=== PATIENT | female | born 1955 | race Caucasian/White ===

== ENCOUNTER 2018-01-25 00:31 | Emergency (ER) | payer OTHER ==
[2018-01-25 00:42] VITALS: BP 150/73; BMI 25.7
--- NOTE | 2018-01-25 00:49 | PDOC ---
History of Present Illness - General History Source: Patient Exam Limitations: No Limitations - History of Present Illness Initial Comments: 01/25/18 01:13 The patient is a year old female, with a significant past medical history of tension headaches, cervical spondylosis, GERD, and carpal tunnel syndrome , who presents to the emergency department with, two days of fever, chills, headache, earache, and throat pain. The patient describes her ear pain as a pinching. She reports her throat pain to worsen upon swallowing and a Tmax of 100 degree Fahrenheit. As per patient, she took 500mg of Tylenol at 6:00pm. Secondary to her symptoms, she reports nausea without emesis and right leg pain. The patient is positive for sick contacts. She denies recent vomit, diarrhea or constipation. She denies recent dysuria, frequency, urgency or hematuria. She denies recent chest pain or shortness of breath. Past surgical history: None reported. Social history: Nonsmoker. Denies EtOH use and recreational drug use. <Jennifer Morrow - Last Filed: 01/25/18 01:58> <Mynor Antony - Last Filed: 01/25/18 02:00> - General Chief Complaint: Ear Problem Stated Complaint: FEVER/EAR PAIN/HEAD ACHE Time Seen by Provider: 01/25/18 00:48 Past History <Jennifer Morrow - Last Filed: 01/25/18 01:58> - Past Medical History GI Disorders: Yes (Gastritis) Hypercholesterolemia: Yes - Surgical History Abdominal Surgery: Yes - Suicide/Smoking/Psychosocial Hx Smoking History: Unknown if ever smoked Have you smoked in the past 12 months: No Information on smoking cessation initiated: No Hx Alcohol Use: No Drug/Substance Use Hx: No <Mynor Antony - Last Filed: 01/25/18 02:00> - Past Medical History Allergies/Adverse Reactions: Allergies Allergy/AdvReac Type Severity Reaction Status Date / Time anesthesia Allergy Severe cardiac Uncoded 01/25/18 00:40 problems Home Medications: Ambulatory Orders Acetaminophen [Tylenol] 650 mg PO 01/25/18 Review of Systems - Review of Systems Able to Perform ROS?: Yes Comments:: 01/25/18 01:13 CONSTITUTIONAL: +Fever. No chills, no fatigue EYES: No visual changes ENT: +ear pain. +sore throat CARDIOVASCULAR: No chest pain, no palpitations RESPIRATORY: No cough, no SOB GI: +Nausea. No abdominal pain, no vomiting, no constipation, no diarrhea GENITOURINARY: No dysuria, no frequency, no hematuria MUSKULOSKELETAL: +Right leg pain. No backpain, no joint pain SKIN: No rash NEURO: +Headache All Other Systems: Reviewed and Negative <Jennifer Morrow - Last Filed: 01/25/18 01:58> *Physical Exam - Vital Signs Last Vital Signs Temp Pulse Resp BP Pulse Ox 100.8 F H 111 H 14 150/73 97 01/25/18 00:58 01/25/18 00:40 01/25/18 00:40 01/25/18 00:40 01/25/18 00:40 - Physical Exam Comments: 01/25/18 01:51 CONSTITUTIONAL:+Febrile. Ill appearing; well-nourished; in no apparent distress HEAD: Normocephalic; atraumatic EYES: PERRL; EOM intact No photophobia. ENMT: +Dry mucous membranes; erythematous oropharynx with exudates. NECK: +Bilateral, anterior cervical lymphadenopathy with tenderness. Supple; non -tender. No Kearning's or Brudzinski. CARD: Normal S1, S2; no murmurs, rubs, or gallops RESP: Normal chest excursion with respiration; breath sounds clear and equal bilaterally; no wheezes, rhonchi, or rales ABD: Soft, non-distended; non-tender; no palpable organomegaly, no palpable hernias EXT: Normal ROM in all four extremities; non-tender to palpation; distal pulses intact SKIN: Warm, dry, no rash NEURO: No focal neurological deficiencies. <Jennifer Morrow - Last Filed: 01/25/18 01:58> - Vital Signs Last Vital Signs Temp Pulse Resp BP Pulse Ox 111 H 14 150/73 97 01/25/18 00:40 01/25/18 00:40 01/25/18 00:40 01/25/18 00:40 <Mynor Antony - Last Filed: 01/25/18 02:00> ED Treatment Course - LABORATORY CBC & Chemistry Diagram: 01/25/18 01:33 01/25/18 01:33 <Jennifer Morrow - Last Filed: 01/25/18 01:58> - LABORATORY CBC & Chemistry Diagram: 01/25/18 01:33 01/25/18 01:33 <Mynor Antony - Last Filed: 01/25/18 02:00> Medical Decision Making - Medical Decision Making 01/25/18 01:45 Vent rate: 100 bpm CO interval: 142 ms QRS duration: 98 ms QT/QTc: 342/441 ms P-R-T axes: 42 76 39 Normal sinus rhythm, Normal ECG. <Jennifer Morrow - Last Filed: 01/25/18 01:58> - Medical Decision Making 01/25/18 01:59 Patient is an ill-appearing 62-year-old female who presents with signs and symptoms of acute strep pharyngitis. No meningeal signs are present. Will hydrate, we'll administer amoxicillin. Will reassess. <Mynor Antony - Last Filed: 01/25/18 02:00> *DC/Admit/Observation/Transfer - Attestations Scribe Attestion: 01/25/18 01:14 Documentation prepared by Jennifer Morrow, acting as biomedical equipment technician for Mynor Antony MD. <Jennifer Morrow - Last Filed: 01/25/18 01:58> - Attestations Physician Attestion: 01/25/18 02:00 The documentation was prepared by the scribe under my direct supervision. I have reviewed the documentation which correctly represents the findings, medical decision-making and critical action taken by me. <Mynor Antony - Last Filed: 01/25/18 02:00> - Referrals Referrals: Ankita Sandhu [Primary Care Provider] -
[2018-01-25] MEDS ORDERED: SODIUM CHLORIDE 1,000 ML IV STA (01:02)
[2018-01-25] MEDS ORDERED: ACETAMINOPHEN 1000 MG/100 ML VIAL (NON FORMULARY) IVPB ONE (01:02)
[2018-01-25] MEDS ORDERED: ACETAMINOPHEN INJECTION 100 ML IVPB ONE (01:05)
[2018-01-25] MEDS ORDERED: AMOXICILLIN 500 MG CAPSULE (FP) PO ONE (01:45)
[2018-01-25 01:50] LABS: BASO % 0.4 % (0-2.0); EOS % 0.1 % (0-4.5); HEMATOCRIT 37.3 % (32.4-45.2); HEMOGLOBIN 12.7 GM/dL (10.7-15.3); LYMPH % 7.3 % (8-40); MCH 28.8 pg (25.7-33.7); MCHC 34.2 g/dl (32.0-36.0); MEAN CELL VOLUME 84.3 fl (80-96); MEAN PLT VOLUME 8.2 fl (7.5-11.1); MONO % 7.7 % (3.8-10.2); NEUT % 84.5 % (42.8-82.8); PLATELET COUNT 260 K/MM3 (134-434); RBC 4.42 M/mm3 (3.60-5.2); RDW 13.6 % (11.6-15.6); WHITE BLOOD COUNT 17.3 K/mm3 (4.0-10.0)
[2018-01-25 01:51] LABS: URINE APPEARANCE CLEAR; URINE BILIRUBIN NEGATIVE (<2.0 mg/dL); URINE BLOOD NEGATIVE (NEGATIVE); URINE COLOR YELLOW; URINE GLUCOSE (UA) NEGATIVE (NEGATIVE); URINE KETONE TRACE (NEGATIVE); URINE LEUK ESTERASE NEGATIVE (NEGATIVE); URINE NITRITE NEGATIVE (NEGATIVE); URINE PROTEIN NEGATIVE (NEGATIVE)
[2018-01-25] MEDS ORDERED: AMOXICILLIN 500 MG CAPSULE (FP) ONE (03:43)
[2018-01-25 03:47] VITALS: PULSE 96; TEMP 98.4
[2018-01-25 03:57] LABS: GLUCOSE,RANDOM 140 mg/dL (74-106)
[2018-01-25 03:58] LABS: BLOOD UREA NITROGEN 10 mg/dL (7-18)
[2018-01-25 03:59] LABS: CREATININE 0.6 mg/dL (0.55-1.02)
[2018-01-25 04:01] LABS: CALCIUM 8.6 mg/dL (8.5-10.1); CHLORIDE 100 mmol/L (98-107); CO2 26 mmol/L (21-32); POTASSIUM 3.8 mmol/L (3.5-5.1); TOT PROT 7.2 g/dl (6.4-8.2)
[2018-01-25 04:02] LABS: ALBUMIN 3.5 g/dl (3.4-5.0); ALK PHOS 127 U/L (45-117); BILIRUBIN,TOTAL 0.4 mg/dL (0.2-1.0); SGOT/AST 18 U/L (15-37); SGPT/ALT 16 U/L (12-78)
[2018-01-25 04:03] LABS: ANION GAP 9 (8-16); SODIUM 135 mmol/L (136-145)
--- NOTE | 2018-01-25 04:50 | PDOC ---
*Physical Exam - Vital Signs Last Vital Signs Temp Pulse Resp BP Pulse Ox 98.4 F 96 H 16 150/73 98 01/25/18 03:46 01/25/18 03:46 01/25/18 03:46 01/25/18 00:40 01/25/18 03:46 - Physical Exam Comments: 01/25/18 04:46 "GENERAL: Awake, alert, and fully oriented, in no acute distress HEAD: No signs of trauma EYES: PERRLA, EOMI, sclera anicteric, conjunctiva clear ENT: Auricles normal inspection, hearing grossly normal, nares patent, oropharynx clear without exudates. Moist mucosa NECK: Nontender, no stepoffs, Normal ROM, supple, no lymphadenopathy, JVD, or masses LUNGS: Breath sounds equal, clear to auscultation bilaterally. No wheezes, and no crackles HEART: Regular rate and rhythm, normal S1 and S2, no murmurs, rubs or gallops ABDOMEN: Soft, nontender, normoactive bowel sounds. No guarding, no rebound. No masses EXTREMITIES: Normal range of motion, no edema. No clubbing or cyanosis. No cords, erythema, or tenderness NEUROLOGICAL: Cranial nerves II through XII intact. 5/5 strength and sensation in all extremities, Normal speech, normal gait, normal cerebellar function SKIN: Warm, Dry, normal turgor, no rashes or lesions noted. " ED Treatment Course - LABORATORY CBC & Chemistry Diagram: 01/25/18 01:33 01/25/18 01:33 - ADDITIONAL ORDERS Additional order review: Laboratory Results 01/25/18 01/25/18 01:33 01:33 Sodium 135 L Potassium 3.8 Chloride 100 Carbon Dioxide 26 Anion Gap 9 BUN 10 Creatinine 0.6 Creat Clearance w eGFR > 60 Random Glucose 140 H Calcium 8.6 Total Bilirubin 0.4 AST 18 ALT 16 Alkaline Phosphatase 127 H Total Protein 7.2 Albumin 3.5 Urine Color Yellow Urine Appearance Clear Urine pH 6.0 D Ur Specific [place] 1.019 Urine Protein Negative Urine Glucose (UA) Negative Urine Ketones Trace H Urine Blood Negative Urine Nitrite Negative Urine Bilirubin Negative Urine Urobilinogen 2.0 H Ur Leukocyte Esterase Negative 01/25/18 01:33 Influenza Types A,B Antigen (KRYSTYNA) - Final Nasopharyngeal Swab - Final 01/25/18 01:01 Group A Strep Rapid Antigen - Final Throat 01/25/18 01:33 RBC 4.42 MCV 84.3 MCHC 34.2 RDW 13.6 MPV 8.2 Neutrophils % 84.5 H Lymphocytes % 7.3 L D Monocytes % 7.7 Eosinophils % 0.1 D Basophils % 0.4 Medical Decision Making - Medical Decision Making 01/25/18 04:47 sign out taken from Dr. Antony at 2am 62 F with fevers, sore throat. Found to be strep positive in ED. Plan at sign out was to follow up labs and reassess pt, admit if necessary. Pt reassessed - now feels significantly better after fluids. Pt is well appearing, with normal vitals. Clinically stable for DC at this time. I discussed the physical exam findings, ancillary test results and final diagnoses with the patient. I answered all of the patient's questions. The patient was satisfied with the care received and felt comfortable with the discharge plan and treatment plan. The patient agrees to follow up with the primary care physician within 24-72 hours. *DC/Admit/Observation/Transfer Diagnosis at time of Disposition: Strep pharyngitis - Discharge Dispostion Disposition: HOME Condition at time of disposition: Improved - Referrals Referrals: Ankita Sandhu [Primary Care Provider] - - Patient Instructions Printed Discharge Instructions: DI for Strep Throat Additional Instructions: You have strep throat. 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 If you experience worsening throat pain, fevers, difficulty swallowing, or any other concerning symptoms, return to the ER immediately. Otherwise, follow up with your primary doctor within 1 week for a re-evaluation. - Post Discharge Activity - Attestations Physician Attestion: 01/25/18 04:53 I, Dr. Fitz Camacho MD, attest that this document has been prepared under my direction and personally reviewed by me in its entirety. I further attest, that it accurately reflects all work, treatment, procedures and medical decision -making performed by me.
--- NOTE | 2018-01-25 21:30 | EKG ---
Test Reason : Blood Pressure : / mmHG Vent. Rate : 100 BPM Atrial Rate : 100 BPM P-R Int : 142 ms QRS Dur : 098 ms QT Int : 342 ms P-R-T Axes : 042 076 039 degrees QTc Int : 441 ms NORMAL SINUS RHYTHM NORMAL ECG WHEN COMPARED WITH ECG OF 07-OCT-2016 13:42, NO SIGNIFICANT CHANGE WAS FOUND Confirmed by ERIK HALL MD ([id number]) on 01/25/2018 9:29:50 PM Referred By: Confirmed By:ERIK HALL MD
== END 2018-01-25 05:00 | disposition home or self-care (01) ==
LOC: JER 00:31
PROC: 3E033NZ Introduction of Analgesics, Hypnotics, Sedatives into Peripheral Vein, Percutaneous Approach (ICD-10-PCS; principal; 2018-01-25)
DX: J02.0 Streptococcal pharyngitis (principal); B95.0 Streptococcus, group A, as the cause of diseases classified elsewhere
CPT/HCPCS: 36415; 80053; 81003; 85025; 87040; 87070; 87077; 87086; 87430; 87804; 93005; 93010; 96374; 99283-25; J0131; J7030

== ENCOUNTER 2018-09-10 19:08 | Emergency (ER) | payer OTHER ==
[2018-09-10 20:04] VITALS: BP 145/77; PULSE 96; TEMP 99.2; BMI 24.1
[2018-09-10] MEDS ORDERED: MAG HYDROX/AL HYDROX/SIMETH 30 ML UNIT-DOSE CUP PO ONE (20:09)
[2018-09-10] MEDS ORDERED: IBUPROFEN 400 MG TABLET (FP) PO ONE ×2 (20:09→20:18)
[2018-09-10] MEDS ORDERED: diazePAM 5 MG TABLET PO ONE (20:09)
[2018-09-10] MEDS ORDERED: LIDOCAINE 5% TOPICAL PATCH TP ONE (20:09)
[2018-09-10] MEDS ORDERED: LIDOCAINE 5% TOPICAL PATCH ONE (20:18)
[2018-09-10] MEDS ORDERED: MAG HYDROX/AL HYDROX/SIMETH 30 ML UNIT-DOSE CUP ONE (20:18)
[2018-09-10] MEDS ORDERED: diazePAM 5 MG TABLET ONE (20:18)
--- NOTE | 2018-09-10 20:23 | PDOC ---
History of Present Illness - General Chief Complaint: Back Pain Stated Complaint: BACK PAIN Time Seen by Provider: 09/10/18 19:43 History Source: Patient Exam Limitations: No Limitations - History of Present Illness Initial Comments: 63 y/o F hx of GERD, HLD, L4-L5 disc herniation, abdominal tumor removal 2015, myomectomy presents with acute on chronic back pain radiating down R thigh. Pain worsened 3 days ago after lifting heavy groceries. Patient states she has had pain for several months and had MRI of L-spine done 03/19/18 which showed L4- L5 disc herniation with L4 nerve root contact. She was referred to neurosurgeon who recommended surgery in June, but states her daughter got into a serious car accident at the time and she had to take care of her so she cancelled the surgery. She states the pain is so bad now, she finds it difficult to even walk. Has tried taking Tylenol and using Bengay without relief of pain. She went to pain management clinic yesterday and was advised steroid injection but appointment was not until 10/14/18. Given she could no longer wait due to pain, she came to ED. Denies fever, sob, cp, abd pain, n/v, urinary complaints, saddle /groin paresthesia, incontinence, trauma. 09/10/18 20:22 Past History - Past Medical History Allergies/Adverse Reactions: Allergies Allergy/AdvReac Type Severity Reaction Status Date / Time lidocaine AdvReac Verified 09/10/18 20:05 Home Medications: Ambulatory Orders Acetaminophen [Tylenol] 650 mg PO ASDIR PRN 01/25/18 Dexlansoprazole [Dexilant] 60 mg PO DAILY 09/10/18 Diclofenac Sodium 50 mg PO TID PRN #30 tablet. 09/10/18 Famotidine [Pepcid] 20 mg PO DAILY PRN #30 tablet 09/10/18 Lidocaine 5% Patch [Lidoderm -] 1 patch TP DAILY #30 patch 09/10/18 Menthol [Bengay Ultra Strength] 1 patch TD Q12H 09/10/18 Methocarbamol [Robaxin -] 500 mg PO TID PRN #21 tablet 09/10/18 Methylprednisolone [Medrol Dose Arnol] 4 mg PO ASDIR #21 tablet 09/10/18 Oxycodone HCl/Acetaminophen [Percocet 5-325 mg Tablet] 1 tab PO Q4H #20 tablet MDD 6 09/10/18 COPD: No GI Disorders: Yes (Gastritis, GERD) Hypercholesterolemia: Yes Other medical history: herniated lumbar disks - Surgical History Abdominal Surgery: Yes - Immunization History Immunization Up to Date: Yes - Suicide/Smoking/Psychosocial Hx Smoking History: Never smoked Have you smoked in the past 12 months: No Information on smoking cessation initiated: No Hx Alcohol Use: No Drug/Substance Use Hx: No Substance Use Type: None Review of Systems - Review of Systems Comments:: See HPI 09/10/18 20:31 *Physical Exam - Vital Signs Last Vital Signs Temp Pulse Resp BP Pulse Ox 99.2 F 96 H 18 145/77 99 09/10/18 19:41 09/10/18 19:41 09/10/18 19:41 09/10/18 19:41 09/10/18 19:41 - Physical Exam General Appearance: Yes: Nourished. No: Apparent Distress Respiratory/Chest: positive: Lungs Clear, Normal Breath Sounds. negative: Respiratory Distress Cardiovascular: positive: Regular Rhythm, Regular Rate, S1, S2 Gastrointestinal/Abdominal: positive: Normal Bowel Sounds, Soft. negative: Tender, Rebound, Tenderness Musculoskeletal: positive: Other (Unable to fully examine patient's back as patient in too much to turn to side or sit up) Neurologic: positive: netbackup engineer II-XII NML intact, Alert, Normal Mood/Affect, Other ( Normal sensation to BLE, strength evaluation limited due to pain, 4/5 strength of R foot dorsiflexion, 5/5 strength B/L plantarflexion, unable to perform SLR due to pain). negative: Confused, Disoriented, Depressed Affect Medical Decision Making - Medical Decision Making 63 y/o F presenting with acute on chronic back pain. Pain could likely be from sciatica, likely exacerbated after lifting heavy groceries. Less suspicous for cauda equina. At this time, PE is limiting due to patient's pain. Will give patient Motrin, Maalox, Valium, Medrol, Lidocaine patch and reassess. 09/10/18 20:23 Patient reassessed and feeling a lot better. She is able to sit up, stand and take a few steps. Will discharge patient on: Diclofenac (has worked for her in past), Pepcid, Percocet, Medrol dosepak, Lidocaine patch, Robaxin Will also refer to pain management and spinal surgeon for further evaluation Plan of care discussed with patient Return precautions discussed 09/10/18 22:33 *DC/Admit/Observation/Transfer Diagnosis at time of Disposition: Lumbar radicular pain - Discharge Dispostion Disposition: HOME Condition at time of disposition: Improved Decision to Admit order: No - Prescriptions Prescriptions: Diclofenac Sodium 50 mg PO TID PRN #30 tablet.dr SAVAGE Reason: Pain Famotidine [Pepcid] 20 mg PO DAILY PRN #30 tablet PRN Reason: Indigestion Lidocaine 5% Patch [Lidoderm -] 1 patch TP DAILY #30 patch Methocarbamol [Robaxin -] 500 mg PO TID PRN #21 tablet PRN Reason: Muscle Spasms Methylprednisolone [Medrol Dose Arnol] 4 mg PO ASDIR #21 tablet Oxycodone HCl/Acetaminophen [Percocet 5-325 mg Tablet] 1 tab PO Q4H #20 tablet MDD 6 - Referrals Referrals: Ankita Sandhu [Primary Care Provider] - 3 days Naeem Varma MD [Staff Physician] - Ema Avila MD [Staff Physician] - Richi Riggs MD [Staff Physician] - Reginaldo Downs MD [Non Staff, Medical] - - Patient Instructions Printed Discharge Instructions: DI for Herniated Disc, DI for Low Back Pain, Activity May Be Better then Rest for Low Back Pain Recovery Additional Instructions: Thank you for choosing [facility]. It was a pleasure taking care of you. You were seen here for back pain due to your herniated disc. You were prescribed Diclofenac to take as needed for mild to moderate pain. If it upsets your stomach, you may take Pepcid. Take Percocet as needed for severe pain. This medication can make you constipated for which you may take over the counter Senna tablets as needed. This medication can also make you drowsy so please be cautious with driving or performing heavy physical work. This medication contains Tylenol. Do not take more than 4000 mg of Tylenol in 1 day. Take Robaxin as needed for muscle spasms Take the Medrol dosepak per the instructions on the box. Apply lidocaine patch as needed to help with pain You were referred to a few pain management doctors; you may choose 1 to follow- up with You were also referred to spinal surgeon, Dr. Richi Riggs, who you may also choose to follow-up with Return to the Emergency Department if your symptoms worsen or persist, you have fever, shortness of breath, chest pain, severe abdominal pain, vomiting, dizziness, weakness of extremities (arms and/or legs), unable to walk, have numbness around groin, unable to control bowel or bladder movements or other concerning symptoms. - Post Discharge Activity
[2018-09-10] MEDS ORDERED: predniSONE 20 MG TABLET (UD) PO ONE (20:42)
[2018-09-10] MEDS ORDERED: predniSONE 20 MG TABLET (UD) ONE (20:52)
--- NOTE | 2018-09-10 21:03 | PDOC ---
*Physical Exam - Vital Signs Last Vital Signs Temp Pulse Resp BP Pulse Ox 99.2 F 96 H 18 145/77 99 09/10/18 19:41 09/10/18 19:41 09/10/18 19:41 09/10/18 19:41 09/10/18 19:41 - Physical Exam Comments: 09/10/18 21:00 Vital signs normal Alert, lying in stretcher No midline spine tenderness 4+ out of 5 right hip flexion limited to pain, 5 out of 5 knee/ankle/toe flexion /extension, neurovascularly intact distally positive straight leg raise, normal perineal sensation ED Treatment Course - Medications Given in the ED: ED Medications Discontinued Medications Generic Name Dose Route Start Last Admin Trade Name Freq PRN Reason Stop Dose Admin Al Hydroxide/Mg Hydroxide 30 ml 09/10/18 20:09 09/10/18 20:27 Mylanta Oral Suspension - PO 09/10/18 20:10 30 ml ONCE ONE Administration Diazepam 5 mg 09/10/18 20:09 09/10/18 20:27 Valium - PO 09/10/18 20:10 5 mg ONCE ONE Administration Ibuprofen 800 mg 09/10/18 20:09 09/10/18 20:26 Motrin - PO 09/10/18 20:10 800 mg ONCE ONE Administration Medical Decision Making - Medical Decision Making 09/10/18 21:01. Patient seen and evaluated with the nurse practitioner. I agree with the overall evaluation, assessment, and management with the following summary of visit: This is a 63-year-old female with known history of L3/L4 disc herniation and nerve compression seen on MRI, scheduled for surgical repair this summer but missed secondary to family emergencies, with exacerbation 3-4 days ago in the setting of lifting objects, seen by her paint stripper and arranged to have steroid injection but in one month, presents now with intractable back pain radiating to her right leg. Sharp pain radiating from her right low back to her anterior mid to distal thigh, no associated weakness but does have some paresthesias, no bowel or bladder issues. Pain on exam but motor is intact, neurovascularly intact 63-year-old female with likely exacerbation of known underlying lumbar disc herniation, neurovascularly intact. Pain regimen No indication for emergent imaging reassess 09/10/18 22:32 Markedly improved after medications, Much more mobility and ambulating in the emergency department. Remains neurologically intact. Family at bedside, they and patient agree with discharge plan on pain regimen, pain management referral , understand return criteria. *DC/Admit/Observation/Transfer Diagnosis at time of Disposition: Lumbar radicular pain - Discharge Dispostion Condition at time of disposition: Improved - Referrals Referrals: Ankita Sandhu [Primary Care Provider] - - Patient Instructions - Post Discharge Activity
[2018-09-10] MEDS ORDERED: LIDOCAINE PATCH REMOVAL MC SCH (22:00)
== END 2018-09-10 23:32 | disposition home or self-care (01) ==
LOC: JER 19:08
DX: M54.16 Radiculopathy, lumbar region (principal); Z87.19 Personal history of other diseases of the digestive system; E78.00 Pure hypercholesterolemia, unspecified
CPT/HCPCS: 99282-25

== ENCOUNTER 2018-10-20 12:16 | Emergency (ER) | payer OTHER ==
[2018-10-20 12:29] VITALS: BP 121/67; PULSE 93; TEMP 98; BMI 23.3
--- NOTE | 2018-10-20 12:47 | PDOC ---
History of Present Illness - General Chief Complaint: Chronic pain Stated Complaint: PAIN,BACK/LEG Time Seen by Provider: 10/20/18 12:45 History Source: Patient, Old Records Exam Limitations: No Limitations - History of Present Illness Initial Comments: HPI: 63 y/o female presenting to [facility] ER complaining of chronic bilateral lower extremity pain worsening for the past five days. Pt states the pain runs from her hips down the back side of both legs. Pain is worse with walking and sitting. Denies trauma, paresthesia, saddle anesthesia, urinary retention, or fecal incontinence. Pt has a known L4-L5 disc herniation from outpatient MRI performed in March 2018. Pt was evaluated by neurosurgeon Dr. Salvador Guaman and scheduled for surgery in June but she had to postpone because of a family illness. She also follows with a roof painter Dr. Paul Baltazar; last appointment was eight days ago. Received steroid injections, which improved symptoms for only three days. Pt has not called either physician for assistance with current pain. Last seen in this department on 09/10/2018 for similar symptoms. Medical Hx: - L4-L5 disc herniation - Tension headaches - Cervical spondylosis - GERD - Carpal tunnel syndrome - HLD - Abdominal (stomach) tumor removal 2014? But unable to provide details Past History - Past Medical History Allergies/Adverse Reactions: Allergies Allergy/AdvReac Type Severity Reaction Status Date / Time epinephrine AdvReac Verified 10/20/18 13:32 Home Medications: Ambulatory Orders Acetaminophen [Tylenol] 650 mg PO ASDIR PRN 01/25/18 Dexlansoprazole [Dexilant] 60 mg PO DAILY 09/10/18 Diclofenac Sodium 50 mg PO TID PRN #30 tablet. 09/10/18 Famotidine [Pepcid] 20 mg PO DAILY PRN #30 tablet 09/10/18 Lidocaine 5% Patch [Lidoderm -] 1 patch TP DAILY #30 patch 09/10/18 Menthol [Bengay Ultra Strength] 1 patch TD Q12H 09/10/18 Methocarbamol [Robaxin -] 500 mg PO TID PRN #21 tablet 09/10/18 Methylprednisolone [Medrol Dose Arnol] 4 mg PO ASDIR #21 tablet 09/10/18 Oxycodone HCl/Acetaminophen [Percocet 5-325 mg Tablet] 1 tab PO Q4H #20 tablet MDD 6 09/10/18 Cyclobenzaprine HCl [Flexeril -] 10 mg PO TID PRN #30 tablet 10/20/18 COPD: No GI Disorders: Yes (Gastritis, GERD) Hypercholesterolemia: Yes - Surgical History Abdominal Surgery: Yes - Immunization History Immunization Up to Date: Yes - Suicide/Smoking/Psychosocial Hx Smoking History: Never smoked Have you smoked in the past 12 months: No Information on smoking cessation initiated: No Hx Alcohol Use: No Drug/Substance Use Hx: No Substance Use Type: None Review of Systems - Review of Systems Able to Perform ROS?: Yes Comments:: In addition to that documented in the HPI above, the additional ROS was obtained : Constitutional: Denies fevers or chills Eyes: Denies vision changes ENMT: Denies sore throat CV: Denies chest pain Resp: Denies SOB GI: Denies vomiting or diarrhea : Denies painful urination MSK: Denies recent trauma Skin: Denies new rashes Neuro: Denies new numbness or tingling or weakness Endocrine: Denies polyuria Heme: Denies bleeding disorders *Physical Exam - Vital Signs Last Vital Signs Temp Pulse Resp BP Pulse Ox 98.0 F 93 H 16 121/67 100 10/20/18 12:27 10/20/18 12:27 10/20/18 12:27 10/20/18 12:27 10/20/18 12:27 - Physical Exam Comments: Constitutional: Well-developed, well-nourished female in no acute distress but obvious discomfort. Found semi-fowlers in hospital bed. Alert and oriented x4. Answered all questions appropriately and completely. Speech was non-labored, non -pressured. HEENT: Normocephalic. No obvious external signs of trauma. Sclera white. Hearing grossly normal. No nasal discharge. Neck is supple, trachea is midline. Cardiovascular: Regular rate and regular rhythm. No murmur, rubs, clicks, or gallops. Peripheral pulses: Radial pulses full. Respiratory: Breathing unlabored. Equal chest rise and fall. Clear to auscultation bilaterally. No stridor, no wheezing, no rhonchi. Gastrointestinal: abdomen is soft, non-tender, non-distended. Neuro: Alert and oriented. Moving all four extremities spontaneously. Lower extremity proximal and distal strength 5/5. Plantar flexion and dorsiflexion 5/ 5. Positive straight leg test bilaterally. Good rectal tone. Intact sensation in perineum. Skin: Warm, dry, and intact. No bruising, rashes, or other lesions. Psych: Affect: appropriate. Mood: normal. Female Rectal: Good sphincter tone with no anal, perineal or rectal lesions. circulation sales representative chaperoned exam. Moderate Sedation - Procedure Monitoring Vital Signs: Procedure Monitoring Vital Signs Temperature 98.0 F 10/20/18 12:27 Pulse Rate 93 H 10/20/18 12:27 Respiratory Rate 16 10/20/18 12:27 Blood Pressure 121/67 10/20/18 12:27 O2 Sat by Pulse Oximetry (%) 100 10/20/18 12:27 Medical Decision Making - Medical Decision Making *Reviewed vital signs, nursing notes, and prior visit documentation (if available). 63 y/o female complaining of acute worsening of chronic back pain x5 days in setting on known L4-L5 disc herniation. Positive bilateral straight leg test. Good rectal tone. Low suspicion for cauda equina. Suspect sciatic neuropathy. Pt followed by both neurosurgery and pain management; has not contacted either regarding current pain. Ordered acetaminophen, diazepam, and lidoderm patch for symptom relief. No additional imaging indicated at this time. 14:49 Pt continues to complain of pain. Ordered Ketorolac injection with Maalox given GERD history. Pt re-evaluated. States she is feeling better. Able to walk. Discussed importance of following up with both pain management and neurosurgery. Pt expressed verbal understanding and agreement with plan to discharge home with outpatient follow up. Will prescribe two week supply of Cyclobenzaprine for temporary symptom relief. *DC/Admit/Observation/Transfer Diagnosis at time of Disposition: Lumbar radicular pain - Discharge Dispostion Disposition: HOME Condition at time of disposition: Stable Decision to Admit order: No - Prescriptions Prescriptions: Cyclobenzaprine HCl [Flexeril -] 10 mg PO TID PRN #30 tablet PRN Reason: For Back Pain - Referrals Referrals: Ankita Sandhu [Primary Care Provider] - - Patient Instructions Printed Discharge Instructions: DI for Back Pain With Sciatica Additional Instructions: You were seen today for worsening lower back pain similar to what you have experienced in the past. Your physical exam was reassuring. You need to follow up with your neurosurgeon sooner than your previously scheduled December 2018 appointment. You should also follow up with your pain management doctor, who may have other suggestions for helping your symptoms. I have sent a prescription for Cyclobenzaprine (Flexeril) to [facility]. Take this medication as written on the package insert. Do not take more than the recommended dose. Go to the nearest emergency department if your condition worsens or you feel like you need additional emergency evaluation. Print Language: KITTITIAN - Post Discharge Activity
[2018-10-20] MEDS ORDERED: ACETAMINOPHEN 500 MG TABLET (FP) PO ONE (13:22)
[2018-10-20] MEDS ORDERED: diazePAM 2 MG TABLET PO ONE (13:30)
[2018-10-20] MEDS ORDERED: LIDOCAINE 5% TOPICAL PATCH TP ONE (13:30)
--- NOTE | 2018-10-20 13:32 | PDOC ---
Attending Attestation - Resident Resident Name: Kashmir Ferguson - ED Attending Attestation I have performed the following: I have examined & evaluated the patient, The case was reviewed & discussed with the resident, I agree w/resident's findings & plan, Exceptions are as noted - HPI HPI: 10/20/18 19:37 63F hx of chronic LE pain, L4-L5 disc herniation, abdominal tumor removal 2015, myomectomy, GERD, and HLD presents with worsening of bilateral lower extremity pain. Pt notes th epain has been worsening for th epast month - denies any significant back pain - but notes pain starts in the buttocks b/l and radiates down her leg. it s worse when she is walking around. no associated numbness/ tingling/weakness, urinary or bweol incontinences, fever/chills. no recent trauma. pt [facility] neurosurgery and pain management. [facility] originally scheduled for surgery in jun, but couldnt make it due to family emergency. pt has it rescheduled for dec. denies any other symtoms such as cp, sob, palpitations, abd pain, neck pain, headache. - Physicial Exam PE: 10/20/18 14:57 GENERAL: The patient is awake, alert, and fully oriented, Nontoxic - in no acute distress. HEAD: Normocephalic, atraumatic. EYES: extraocular movements intact, sclera anicteric, conjunctiva clear. ENT: Normal voice, Moist mucous membranes. NECK: Normal range of motion, supple LUNGS: Breath sounds equal, clear to auscultation bilaterally. No wheezes, no rhonchi, no rales. HEART: Regular rate and rhythm, normal S1 and S2 without murmur, rub or gallop. ABDOMEN: Soft, nontender, normoactive bowel sounds. No guarding, no rebound. . No CVA tenderness EXTREMITIES: Normal range of motion, no edema. BACK: No midline focal cervical/thraco/lumbar tenderness MSK: +ttp at superior buttock b/l, normal rom NEUROLOGICAL: No facial assymetry, Normal speech, sensation symmetric in LE, motor 5/5 in LE symmetrically, sensation intact in the perineal region PSYCH: Normal mood, normal affect. SKIN: Warm, Dry, normal turgor, - Medical Decision Making 10/20/18 13:48 63y F presents with worsening b/l LE pain hx of hernition disk awaiting surgery sp steroid injection with resolution of symtoms b/l LE radiation down the leg without associated urinary/bowel incontinence, saddle anesthesia worsens when she walks/sits, +SLR b/l strength 5/5 +rectal tone per resident 10/20/18 14:59 ddx - suspect scitica = chronic back pain, possible mylopathy
[2018-10-20] MEDS ORDERED: ACETAMINOPHEN 325 MG TABLET (FP) ONE (14:11)
[2018-10-20] MEDS ORDERED: LIDOCAINE 5% TOPICAL PATCH ONE (14:12)
[2018-10-20] MEDS ORDERED: diazePAM 2 MG TABLET ONE (14:12)
[2018-10-20] MEDS ORDERED: KETOROLAC TROMETHAMINE 30 MG/1 ML VIAL IM ONE (14:46)
[2018-10-20] MEDS ORDERED: MAG HYDROX/AL HYDROX/SIMETH 30 ML UNIT-DOSE CUP PO ONE (14:47)
[2018-10-20] MEDS ORDERED: KETOROLAC TROMETHAMINE 30 MG/1 ML VIAL ONE (15:10)
[2018-10-20] MEDS ORDERED: MAG HYDROX/AL HYDROX/SIMETH 30 ML UNIT-DOSE CUP ONE (15:10)
[2018-10-20] MEDS ORDERED: LIDOCAINE PATCH REMOVAL MC SCH (22:00)
== END 2018-10-20 17:22 | disposition home or self-care (01) ==
LOC: JER 12:16
PROC: 3E0233Z Introduction of Anti-inflammatory into Muscle, Percutaneous Approach (ICD-10-PCS; principal; 2018-10-20)
DX: M51.16 Intervertebral disc disorders with radiculopathy, lumbar region (principal)
CPT/HCPCS: 99282-25

== ENCOUNTER → 2019-06-30 | Emergency (ER) | payer OTHER ==
[2019-06-30 22:44] VITALS: BP 156/64; PULSE 81; TEMP 98.6; BMI 29.7
--- NOTE | 2019-06-30 23:34 | PDOC ---
History of Present Illness - History of Present Illness Initial Comments: 64 year old female with PMH of polymyalgia rheumatica on steroid therapy daily ( currenly up to 20 mg- recent increase form 8 mg) presenting with acute on chronic bi-temporal headaches for the past few days. States that this headache has been intermitted for a few others but acutely worsened over the pat few days. She has only tried steroids at home. The pain is a 6/10 and has no exacerbating or relieving factors. She is in our Ed today because her system controller told her that her symptoms sounded concerning and that she should go to an ED. She went to [facility] ED a few days prior and was discharged after a few medications and basic laboratory work. States that this did not receive a CT head there. She also states that she feels as if the vision in her left eye is slightly different than her right eye. Denies nausea, vomiting, fevers, chills, neck stiffness. 07/01/19 02:28 <Jorge Brennan - Last Filed: 07/01/19 03:55> <Troy Wheatley - Last Filed: 07/01/19 04:32> - General Chief Complaint: Headache Stated Complaint: HEADACHE Time Seen by Provider: 06/30/19 23:34 Past History - Past Medical History COPD: No GI Disorders: Yes (Gastritis, GERD) Hypercholesterolemia: Yes Other medical history: polymyalgia rheumatica - Surgical History Abdominal Surgery: Yes - Immunization History Immunization Up to Date: Yes - Suicide/Smoking/Psychosocial Hx Smoking History: Never smoked Have you smoked in the past 12 months: No Hx Alcohol Use: No Drug/Substance Use Hx: No Substance Use Type: None <Jorge Brennan - Last Filed: 07/01/19 03:55> <Troy Wheatley - Last Filed: 07/01/19 04:32> - Past Medical History Allergies/Adverse Reactions: Allergies Allergy/AdvReac Type Severity Reaction Status Date / Time epinephrine AdvReac Verified 06/30/19 22:36 Home Medications: Ambulatory Orders Acetaminophen [Tylenol] 650 mg PO ASDIR PRN 01/25/18 Dexlansoprazole [Dexilant] 60 mg PO DAILY 09/10/18 Diclofenac Sodium 50 mg PO TID PRN #30 tablet. 09/10/18 Famotidine [Pepcid] 20 mg PO DAILY PRN #30 tablet 09/10/18 Lidocaine 5% Patch [Lidoderm -] 1 patch TP DAILY #30 patch 09/10/18 Menthol [Bengay Ultra Strength] 1 patch TD Q12H 09/10/18 Methocarbamol [Robaxin -] 500 mg PO TID PRN #21 tablet 09/10/18 Methylprednisolone [Medrol Dose Arnol] 4 mg PO ASDIR #21 tablet 09/10/18 Oxycodone HCl/Acetaminophen [Percocet 5-325 mg Tablet] 1 tab PO Q4H #20 tablet MDD 6 09/10/18 Cyclobenzaprine HCl [Flexeril -] 10 mg PO TID PRN #30 tablet 10/20/18 Review of Systems - Review of Systems Constitutional: No: Chills, Diaphoresis, Fever, Loss of Appetite HEENTM: No: Eye Pain, Blurred Vision Respiratory: No: Cough, Orthopnea, Shortness of Breath Cardiac (ROS): No: Chest Pain, Edema, Irregular Heart Rate ABD/GI: No: Diarrhea, Nausea, Vomiting : No: Burning, Dysuria, Discharge, Frequency Integumentary: No: Lesions, Lumps Neurological: Yes: Headache. No: Numbness, Paresthesia Hematologic/Lymphatic: No: Anemia, Blood Clots, Easy Bleeding <Jorge Brennan - Last Filed: 07/01/19 03:55> *Physical Exam - Vital Signs Last Vital Signs Temp Pulse Resp BP Pulse Ox 98.6 F 81 18 156/64 98 06/30/19 22:36 06/30/19 22:36 06/30/19 22:36 06/30/19 22:36 06/30/19 22:36 - Physical Exam General Appearance: Yes: Nourished, Appropriately Dressed. No: Apparent Distress HEENT: positive: EOMI, LUIS M, Normal ENT Inspection, Normal Voice, Other (small soft tissue swellin laureen frontal left scalp that patient stats has been there for years, no palpabl ecord like structure or tenderness on either temporal region. 20/30 bilateral vision with intact visual luciano. ) Neck: positive: Trachea midline, Normal Thyroid. negative: Tender Respiratory/Chest: positive: Lungs Clear, Normal Breath Sounds. negative: Chest Tender, Respiratory Distress Cardiovascular: positive: Regular Rhythm, Regular Rate Gastrointestinal/Abdominal: positive: Normal Bowel Sounds, Flat, Soft. negative : Tender Musculoskeletal: positive: Normal Inspection. negative: Decreased Range of Motion Extremity: positive: Normal Capillary Refill, Normal Inspection, Normal Range of Motion. negative: Tender Integumentary: positive: Normal Color, Dry, Warm Neurologic: positive: Fully Oriented, Alert, Normal Mood/Affect, Normal Response , Motor Strength 5/5 <Jorge Brennan - Last Filed: 07/01/19 03:55> - Vital Signs Last Vital Signs Temp Pulse Resp BP Pulse Ox 98.6 F 81 18 156/64 98 06/30/19 22:36 06/30/19 22:36 06/30/19 22:36 06/30/19 22:36 06/30/19 22:36 <Troy Wheatley - Last Filed: 07/01/19 04:32> ED Treatment Course - LABORATORY CBC & Chemistry Diagram: 07/01/19 00:00 07/01/19 00:00 <Jorge Brennan - Last Filed: 07/01/19 03:55> - LABORATORY CBC & Chemistry Diagram: 07/01/19 00:00 07/01/19 00:00 - ADDITIONAL ORDERS Additional order review: Laboratory Results 07/01/19 07/01/19 00:00 00:00 Sodium Cancelled Potassium Cancelled Chloride Cancelled Carbon Dioxide Cancelled Anion Gap Cancelled BUN Cancelled Creatinine Cancelled Est GFR (CKD-EPI)AfAm Cancelled Est GFR (CKD-EPI)NonAf Cancelled Random Glucose Cancelled Calcium Cancelled Total Bilirubin Cancelled AST Cancelled ALT Cancelled Alkaline Phosphatase Cancelled C-Reactive Protein 4.6 H Total Protein Cancelled Albumin Cancelled 07/01/19 00:00 RBC 4.36 MCV 84.1 MCHC 32.0 RDW 14.4 MPV 8.0 Neutrophils % 59.7 D Lymphocytes % 29.0 D Monocytes % 8.7 Eosinophils % 1.9 D Basophils % 0.7 <Troy Wheatley - Last Filed: 07/01/19 04:32> Medical Decision Making - Medical Decision Making 64 year old female with history f headaches presenting with acute on chronic headache, bi-temporally. Told by her system controller to come to the ED. CT head negative, CBC WNL, CMP hemolyzed but CRP down from previous measurement 8 months prior. No palpable cords on temples and visual luciano and vision grossly normal (20/30) bilaterally. Will DC with Tylenol/ Motrin use instructions and follow up with her system controller. 07/01/19 03:47 <Janet Brennanhenri - Last Filed: 07/01/19 03:55> *DC/Admit/Observation/Transfer - Discharge Dispostion Decision to Admit order: No <[email or web address] - Last Filed: 07/01/19 03:55> - Attestations Physician Attestion: 07/01/19 04:32 I have reviewed the plan as documented and agree with current plan as documented. Electronically co-signed by Troy Wheatley MD <Troy Wheatley - Last Filed: 07/01/19 04:32> Diagnosis at time of Disposition: Headache Qualifiers: Headache type: tension-type Headache chronicity pattern: acute headache Intractability: not intractable Qualified Code(s): G44.209 - Tension-type headache, unspecified, not intractable - Discharge Dispostion Disposition: HOME Condition at time of disposition: Improved - Referrals Referrals: Ankita Sandhu [Primary Care Provider] - - Patient Instructions Printed Discharge Instructions: DI for Headache Additional Instructions: Please use Tylenol or Motrin for your headaches. Please follow up with system controller for further quesitons or issues. Please return to the ED if you have new or worsening symptoms. - Post Discharge Activity
[2019-07-01 00:25] LABS: BASO % 0.7 % (0-2.0); EOS % 1.9 % (0-4.5); HEMATOCRIT 36.6 % (32.4-45.2); HEMOGLOBIN 11.7 GM/dL (10.7-15.3); MCH 26.9 pg (25.7-33.7); MEAN CELL VOLUME 84.1 fl (80-96); MONO % 8.7 % (3.8-10.2); NEUT % 59.7 % (42.8-82.8); PLATELET COUNT 443 K/MM3 (134-434); RBC 4.36 M/mm3 (3.60-5.2); RDW 14.4 % (11.6-15.6); WHITE BLOOD COUNT 11.4 K/mm3 (4.0-10.0)
--- NOTE | 2019-07-01 00:57 | PDOC ---
Documentation entered by Dwight Patel SCRIBE, acting as scribe for Troy Wheatley MD. Troy Wheatley MD: This documentation has been prepared by the Jorge mcintyre Daniel, SCRIBE, under my direction and personally reviewed by me in its entirety. I confirm that the documentation accurately reflects all work, treatment, procedures, and medical decision making performed by me. Attending Attestation - Resident Resident Name: Jorge Brennan - ED Attending Attestation I have performed the following: I have examined & evaluated the patient, The case was reviewed & discussed with the resident, I agree w/resident's findings & plan, Exceptions are as noted - HPI HPI: 07/01/19 00:02 The patient is a 64 year old female with a past medical history of 3 herniated C spine discs and 1 herniated L spine disc here today for evaluation of headache. The patient reports that her headache started 1 month ago and describes it as bilaterally temporal with the right worse than the left. She also notes left blurry vision for the past 3 days, nausea, and that her pain is worse with chewing. She reports going to the [facility] ED and receiving muscle relaxants which helped mildly. Patient was told by her size worker to come in. Patient denies lightheadedness. Denies fever, chills. Denies chest pain, shortness of breath. Denies vomiting, diarrhea, abdominal pain. Allergies: epinephrine PCP: Ankita Sandhu - Physicial Exam PE: 07/01/19 00:03 GENERAL: Awake, alert, and fully oriented, in no acute distress HEAD: No signs of trauma EYES: PERRLA, EOMI, sclera anicteric, conjunctiva clear ENT: Auricles normal inspection, hearing grossly normal, nares patent, oropharynx clear without exudates. Moist mucosa NECK: Normal ROM, supple, no lymphadenopathy, JVD, or masses LUNGS: Breath sounds equal, clear to auscultation bilaterally. No wheezes, and no crackles HEART: Regular rate and rhythm, normal S1 and S2, no murmurs, rubs or gallops ABDOMEN: Soft, nontender, normoactive bowel sounds. No guarding, no rebound. No masses EXTREMITIES: Normal range of motion, no edema. No clubbing or cyanosis. No cords, erythema, or tenderness NEUROLOGICAL: Cranial nerves II through XII grossly intact. Normal speech, normal gait SKIN: Warm, Dry, normal turgor, no rashes or lesions noted. - Medical Decision Making 07/01/19 00:55 Headache x 4 months Non tender temporal areas, no pain with chewing normal neuro exam. Well appearing. Given duration of symptoms will obtain CT Head pain control basic labs ESR/CRP reassess
== END | disposition home or self-care (01) ==
LOC: JER 22:32
DX: G44.209 Tension-type headache, unspecified, not intractable (principal); M35.3 Polymyalgia rheumatica; K21.9 Gastro-esophageal reflux disease without esophagitis
CPT/HCPCS: 36415; 70450-TC; 85025; 85651; 86140; 99282-25